=== PATIENT | male | born 1985 | race Hispanic/Latino ===

== ENCOUNTER 2018-07-17 01:54 | Emergency (ER) | payer OTHER ==
[2018-07-17 02:03] VITALS: BMI 28.1
[2018-07-17 02:04] VITALS: TEMP 98.1
--- NOTE | 2018-07-17 02:11 | ED PDOC ---
Arrival/HPI - General Chief Complaint: ENT Problem Time Seen by Provider: 07/17/18 02:02 Historian: Patient, Spouse - History of Present Illness Narrative History of Present Illness (Text): 07/17/18 02:07 Yogesh Marcus is a 32 year old male who presents to the ED brought in by EMS status post fall prior to arrival. stated patient was walking, fell, and hit his face against a coffee table prior to arrival. Patient now complaining of pain, swelling, and bleeding to his nose. Patient admits to drinking alcohol tonight. Patient denies any loss of consciousness, vision changes, headache, vomiting, or any other complaints. Symptom Onset: Gradual Symptom Course: Unchanged Activities at Onset: Light Context: Home Past Medical History - Provider Review Nursing Documentation Reviewed: Yes - Infectious Disease Hx of Infectious Diseases: None - Tetanus Immunization Tetanus Immunization: Unknown - Psychiatric Hx Depression: No Hx Substance Use: Yes - Anesthesia Hx Anesthesia: No - Suicidal Assessment Feels Threatened In Home Enviroment: No Family/Social History - Physician Review Nursing Documentation Reviewed: Yes Family/Social History: Unknown Family HX Smoking Status: Heavy Smoker > 10 Cigarettes Daily Hx Alcohol Use: Yes Hx Substance Use: Yes Substance used: Marijuana Hx Substance Use Treatment: No Allergies/Home Meds Allergies/Adverse Reactions: Allergies No Known Allergies Allergy (Verified 07/21/16 11:21) Review of Systems - Physician Review All systems were reviewed & negative as marked: Yes - Review of Systems Constitutional: Normal. absent: Fevers Eyes: Normal ENT: Epistaxis, Other (+nose pain) Respiratory: Normal. absent: SOB, Cough Cardiovascular: Normal Gastrointestinal: Normal Genitourinary Male: Normal Musculoskeletal: Normal Skin: Normal Neurological: Normal Endocrine: Normal Hemo/Lymphatic: Normal Psychiatric: Normal Physical Exam Vital Signs Reviewed: Yes Vital Signs Temp Pulse Resp BP Pulse Ox 07/17/18 04:57 82 19 126/72 100 07/17/18 02:03 98.1 F 77 16 133/68 97 Temperature: Afebrile Blood Pressure: Normal Pulse: Regular Respiratory Rate: Normal Appearance: Positive for: Well-Appearing, Non-Toxic, Comfortable Pain Distress: None Mental Status: Positive for: Alert and Oriented X 3 - Systems Exam Head: Present: Normocephalic, Laceration (10mm linear laceration to philtrum, 10mm linear laceration to right nasolabial fold) Pupils: Present: PERRL Extroacular Muscles: Present: EOMI Conjunctiva: Present: Normal Mouth: Present: Moist Mucous Membranes Nose (External): Present: Other (Right-sided nose swelling) Nose (Internal): Present: Other (Dried blood in nares) Neck: Present: Normal Range of Motion Respiratory/Chest: Present: Clear to Auscultation, Good Air Exchange. No: Respiratory Distress, Accessory Muscle Use Cardiovascular: Present: Regular Rate and Rhythm, Normal S1, S2. No: Murmurs Abdomen: No: Tenderness, Distention, Peritoneal Signs Back: Present: Normal Inspection Upper Extremity: Present: Normal Inspection. No: Cyanosis, Edema Lower Extremity: Present: Normal Inspection. No: Edema Neurological: Present: GCS=15, CN II-XII Intact, Speech Normal Skin: Present: Warm, Dry, Normal Color. No: Rashes Psychiatric: Present: Alert, Oriented x 3, Normal Insight, Normal Concentration Medical Decision Making ED Course and Treatment: 07/17/18 02:07 Impression: 32 year old male c/o pain/swelling/bleeding from nose s/p trip and fall at home prior to arrival. Plan: -- CT Head w/o contrast -- CT Maxillofacial w/o contrast -- Reassess and disposition Progress Notes: 07/17/18 04:01 CT Head reviewed, shows: No acute intracranial abnormality. CT Maxillofacial reviewed, shows: 1. Displaced severely comminuted fractures involving both nasal bones. 2. Associated facial swelling. 3. Fluid within nasal cavity and ethmoid air cells with hemorrhage. 07/17/18 04:00 PROCEDURE: LACERATION REPAIR Performed by the emergency provider Location: Philtrum Length: 10 mm Description: clean wound edges, no foreign bodies Distal CMS: Normal. No deficits. Neurovascularly intact. Anesthesia: Lidocaine 2% Preparation: The wound was cleaned with NS and Betadyne. The area was prepped and draped in the usual sterile fashion. Exploration: The wound was explored and no foreign bodies were found. Procedure: The wound was closed with 6-0 nylon. There was good approximation. In total, 5 stitches were used. Post-Procedure: Good closure and hemostasis. The patient tolerated the procedure well and there were no complications. CSM remains intact. Post procedure dressing applied. PROCEDURE: LACERATION REPAIR Performed by the emergency provider Location: Right nasolabial fold Length: 10 mm Description: clean wound edges, no foreign bodies Distal CMS: Normal. No deficits. Neurovascularly intact. Anesthesia: Lidocaine 2% Preparation: The wound was cleaned with NS and Betadyne. The area was prepped and draped in the usual sterile fashion. Exploration: The wound was explored and no foreign bodies were found. Procedure: The wound was closed with 6-0 nylon. There was good approximation. In total, 3 stitches were used. Post-Procedure: Good closure and hemostasis. The patient tolerated the procedure well and there were no complications. CSM remains intact. Post procedure dressing applied. 07/17/18 04:46 Patient is resting comfortably, and is in no acute distress. Patient was instructed to follow up with *physician/clinic* in 1-2 days for further evaluation. 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 I have reviewed the chart and agree that the record accurately reflects my personal performance of the history, physical exam, medical decision making, and the department course for this patient. I have also personally directed, reviewed, and agree with the discharge instructions and disposition. Disposition/Present on Arrival - Present on Arrival Any Indicators Present on Arrival: No History of DVT/PE: No History of Uncontrolled Diabetes: No Urinary Catheter: No History of Decub. Ulcer: No History Surgical Site Infection Following: None - Disposition Have Diagnosis and Disposition been Completed?: Yes Diagnosis: Nasal bone fracture, Laceration of nose Disposition: HOME/ ROUTINE Disposition Time: 05:45 Condition: GOOD Discharge Instructions (ExitCare): Nose Fracture, Laceration Repair Additional Instructions: follow up with ENT in am do not blow your nose take antibiotics as directed Prescriptions: Amoxicillin 875 mg PO BID #14 tab Tramadol HCl [Ultram] 50 mg PO QID #8 tab Referrals: Pardeep Pandey, [Staff Provider] - Follow up with primary Forms: [facility] (E[place]ian), WORK NOTE
[2018-07-17] MEDS ORDERED: Lidocaine PF 2% (5 ml) Inj (For Cardiac Arrhy) ONE (03:37)
[2018-07-17 04:58] VITALS: BP 126/72; PULSE 82; RESP 19; O2SAT 100
--- NOTE | 2018-07-17 08:49 | CT ---
Date of service: 07/17/2018 PROCEDURE: CT HEAD WITHOUT CONTRAST. HISTORY: Trauma/fall COMPARISON: None available. TECHNIQUE: Axial computed tomography images were obtained through the head/brain without intravenous contrast. Supplemental Coronal and Sagittal projectections created and reviewed. Radiation dose: Total exam DLP = 831.50 mGy-cm. This CT exam was performed using one or more of the following dose reduction techniques: Automated exposure control, adjustment of the mA and/or kV according to patient size, and/or use of iterative reconstruction technique. FINDINGS: HEMORRHAGE: No intracranial hemorrhage. BRAIN: No mass effect or edema. No atrophy or chronic microvascular ischemic changes. VENTRICLES: Unremarkable. No hydrocephalus. CALVARIUM: Unremarkable. PARANASAL SINUSES: Unremarkable as visualized. No significant inflammatory changes. MASTOID AIR CELLS: Unremarkable as visualized. No inflammatory changes. OTHER FINDINGS: Incompletely visualized therefore characterized nasal bone fractures. IMPRESSION: No acute intracranial abnormalities. No significant findings to account for the clinical presentation. Incompletely visualized facial findings including bilateral nasal bone fractures. Concordant results (preliminary interpretation) provided by [facility]. Procedure Completed: 02:30. Preliminary ([facility]) Report: Dictated and Authenticated: 02:47. Final Interpretation: 08:47. July 17, 2018.
--- NOTE | 2018-07-17 09:22 | CT ---
Date of service: 07/17/2018 PROCEDURE: CT MAXILLOFACIAL BONES WITHOUT CONTRAST HISTORY: fall COMPARISON: None available. TECHNIQUE: Contiguous axial CT images of the maxillofacial bones were obtained. Coronal and sagittal reformats were generated. Radiation dose: Total exam DLP = 807.42 mGy-cm. This CT exam was performed using one or more of the following dose reduction techniques: Automated exposure control, adjustment of the mA and/or kV according to patient size, and/or use of iterative reconstruction technique. FINDINGS: NASAL BONES: Acute bilateral and comminuted nasal bone fractures. Considerable soft tissue swelling accompanies these fractures. The fractures extend to the bony nasal septum with the fracture line and air is identified (series 2/image 90). ORBITS: Unremarkable. PARANASAL SINUSES/ MASTOIDS: Clear. MAXILLA: Unremarkable. MANDIBLE/ TEMPOROMANDIBULAR JOINTS: Unremarkable. SKULL BASE: Unremarkable. TEMPORAL BONES: Middle ears and mastoid grossly unremarkable. OTHER FINDINGS: None. IMPRESSION: Acute, comminuted/bilateral nasal bone fractures. Fractures extend to the bony nasal septum. No maxillary abnormalities identified. No significant findings with respect to the orbits and associated/adjacent structures. Concordant results (preliminary interpretation) provided by [facility]. Procedure Completed: 02:32. Preliminary ([facility]) Report: Dictated and Authenticated: 02:50. Final Interpretation: 09:20.
== END 2018-07-17 04:57 | disposition home or self-care (01) ==
LOC: ED 01:54
DX: S02.2XXA Fracture of nasal bones, initial encounter for closed fracture (principal); S01.21XA Laceration without foreign body of nose, initial encounter; W18.30XA Fall on same level, unspecified, initial encounter; Y93.01 Activity, walking, marching and hiking; Y92.009 Unspecified place in unspecified non-institutional (private) residence as the place of occurrence of the external cause